=== PATIENT | male | born 1995 | race African-American/Black ===

== ENCOUNTER 2018-11-19 16:16 | Emergency (ER) | payer SELFPAY ==
[2018-11-19] MEDS ORDERED: Sodium Chloride 0.9% 1,000 ML IV ONE ×2 (16:21→17:09)
[2018-11-19] MEDS ORDERED: Ondansetron 4 MG Tab.DIS PO ONE (16:22)
--- NOTE | 2018-11-19 16:39 | EDM.PDOC ---
ED HPI GENERAL MEDICAL PROBLEM - General Chief Complaint: General Stated Complaint: POSSIBLE HEAT STROKE Time Seen by Provider: 11/19/18 16:20 Source of Information: Reports: Patient History Limitations: Reports: No Limitations - History of Present Illness INITIAL COMMENTS - FREE TEXT/NARRATIVE: patient presents with coworker from work for acute onset of dizziness, nausea, vomiting, and frontal sharp headache. 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 He denies SOB CP or abd pain, or near syncope symptoms. He denies any medication history, no meds no surgery, not smoker, ETOH (only 2 beers yesterday despite it was his birthday) he had to get up early to he states, and denies illicit drug use or any caffeine today. headache Pain Score (Numeric/FACES): 5 - Related Data Allergies Allergy/AdvReac Type Severity Reaction Status Date / Time No Known Allergies Allergy Verified 11/19/18 17:11 Home Meds: Home Meds . [No Known Home Meds] 11/19/18 [History] Past Medical History - Past Health History Medical/Surgical History: Denies Medical/Surgical History Social & Family History - Tobacco Use Smoking Status *Q: Never Smoker - Caffeine Use Caffeine Use: Reports: Coffee Other Caffeine Use: occiasional - Alcohol Use Alcohol Use History: Yes Days Per Week of Alcohol Use: 2 (occasional use) - Recreational Drug Use Recreational Drug Use: No ED ROS GENERAL - Review of Systems Review Of Systems: See Below Constitutional: Reports: Weakness, Fatigue, Diaphoresis HEENT: Reports: No Symptoms Respiratory: Reports: No Symptoms Cardiovascular: Reports: No Symptoms GI/Abdominal: Reports: No Symptoms : Reports: No Symptoms Musculoskeletal: Reports: No Symptoms Skin: Reports: Diaphoresis Neurological: Reports: No Symptoms Psychiatric: Reports: No Symptoms Hematologic/Lymphatic: Reports: No Symptoms ED EXAM, DIZZINESS - Physical Exam Exam: See Below Exam Limited By: No Limitations General Appearance: Alert, WD/WN, No Apparent Distress Nystagmus: worsens with head to L, worsens with head to R, reproducible, short duration (horizontal nystagmus, not vertical or rotatory. Always present with movement. ) Ears: Normal External Exam, Normal Canal, Hearing Grossly Normal, Normal TMs Nose: Normal Inspection, Normal Mucosa, No Blood Throat/Mouth: Normal Inspection, Normal Lips, Normal Teeth, Normal Gums, Normal Oropharynx, No Airway Compromise Head Exam: Atraumatic, Normocephalic Neck: Normal Inspection, Supple, Non-Tender, Full Range of Motion Respiratory/Chest: No Respiratory Distress, Lungs Clear, Normal Breath Sounds, No Accessory Muscle Use Cardiovascular: Normal Peripheral Pulses, Regular Rate, Rhythm, No Edema, No Gallop, No Murmur GI/Abdominal: Normal Bowel Sounds, Soft, Non-Tender (Male) Exam: Deferred Neurological: Alert, Normal Mood/Affect, Normal Dorsiflexion, CN II-XII Intact, Normal Plantar Flexion, Normal Gait, No Motor/Sensory Deficits, Oriented x 3, Other (rapid repetitive finger to nose and thumb to finger intact.) Back Exam: Normal Inspection, Full Range of Motion Extremities: Normal Inspection, Normal Range of Motion, Normal Capillary Refill Psychiatric: Normal Affect, Normal Mood Skin Exam: Warm, Intact, Normal Color Course - Vital Signs Text/Narrative:: saline lock, labs to check lytes and cbc, UA to check specific gravity, and urine tox. 1 liter of NS infusing, patient feels nausea, zofran ODT given, patient has peripheral related vertigo symptoms, worse always with movement, nothing at rest, meclizine ordered 25 mg PO. Patient is improved, laughing and having a nice conversation with his co worker , no N/V during ED stay, up to bathroom w.o assist, if patient turns his head side to side vertigo like symptoms of the room spinning and feeling Nausea rapidly occurs, but shortly resolves when he sits still. 2 liters of NS to be given. labs checked all normal and reassuring, normal Na 142 and K 3.8 levels. Trace ketones and darker urine color, early signs of volume depletion. a second liter was given. Ortho statics completed. Patient up and ambulated in the halls w/o assist, asymptomatic no vertigo like symptoms, gait steady, his coworker is here to take him home. Last Recorded V/S: Last Vital Signs Temp 96.7 F 11/19/18 16:20 Pulse 78 11/19/18 17:07 Resp 10 L 11/19/18 17:07 BP 136/70 11/19/18 17:07 Pulse Ox 98 11/19/18 17:07 Orthostatic Blood Pressure [ 118/74 Standing] Orthostatic Blood Pressure [ 123/64 Sitting] Orthostatic Blood Pressure [ 135/69 Supine] - Orders/Labs/Meds Labs: Laboratory Tests 11/19/18 11/19/18 11/19/18 Range/Units 16:40 16:40 16:45 WBC 9.40 (5.00-10.00) 10^3/uL RBC 5.04 (4.50-6.00) 10^6/uL Hgb 14.0 (13.0-17.0) g/dL Hct 39.3 L (40.0-52.0) % MCV 78.0 L (82.0-92.0) fL MCH 27.8 (27.0-31.0) pg MCHC 35.6 (32.0-36.0) g/dL RDW 14.2 (11.5-14.5) % Plt Count 230 (150-400) 10^3/uL MPV 10.2 (7.4-10.4) fL Sodium 142 (136-145) mmol/L Potassium 3.8 (3.3-5.3) mmol/L Chloride 104 (98-115) mmol/L Carbon Dioxide 23.9 (21.0-32.0) mmol/L Anion Gap 17.9 H (5-15) mmol/L BUN 16 (6-25) mg/dL Creatinine 0.98 (0.51-1.17) mg/dL Est Cr Clr Drug Dosing TNP Estimated GFR (MDRD) > 60 mL/min Glucose 103 H (75 - 99) mg/dL Calcium 9.4 (8.7-10.3) mg/dL Total Bilirubin 0.5 (0.2-1.0) mg/dL AST 31 (15-37) U/L ALT 31 (12-78) U/L Alkaline Phosphatase 75 (46-116) IU/L Total Protein 8.0 (6.4-8.2) g/dL Albumin 4.30 (3.00-4.80) g/dL Specimen Type Urinvoid Urine Color Yellow (YELLOW) Urine Appearance Slightly cloudy H (CLEAR) Urine pH 5.5 (5.0-9.0) Ur Specific [place] 1.025 (1.005-1.030) Urine Protein Negative (NEGATIVE) mg/dL Urine Glucose (UA) Negative (NEGATIVE) mg/dL Urine Ketones Trace H (NEGATIVE) mg/dL Urine Occult Blood Negative (NEGATIVE) Urine Nitrite Negative (NEGATIVE) Urine Bilirubin Negative (NEGATIVE) Urine Urobilinogen 0.2 (0.2-1.0) E.U./dL Ur Leukocyte Esterase Negative (NEGATIVE) Urine Opiates Screen (NEGATIVE) Ur Oxycodone Screen (NEGATIVE) Urine Methadone Screen (NEGATIVE) Ur Propoxyphene Screen (NEGATIVE) Ur Barbiturates Screen (NEGATIVE) Ur Tricyclics Screen (NEGATIVE) Ur Phencyclidine Scrn (NEGATIVE) Ur Amphetamine Screen (NEGATIVE) U Methamphetamines Scrn (NEGATIVE) U Benzodiazepines Scrn (NEGATIVE) U Cocaine Metab Screen (NEGATIVE) U Marijuana (THC) Screen (NEGATIVE) 11/19/18 Range/Units 16:45 WBC (5.00-10.00) 10^3/uL RBC (4.50-6.00) 10^6/uL Hgb (13.0-17.0) g/dL Hct (40.0-52.0) % MCV (82.0-92.0) fL MCH (27.0-31.0) pg MCHC (32.0-36.0) g/dL RDW (11.5-14.5) % Plt Count (150-400) 10^3/uL MPV (7.4-10.4) fL Sodium (136-145) mmol/L Potassium (3.3-5.3) mmol/L Chloride (98-115) mmol/L Carbon Dioxide (21.0-32.0) mmol/L Anion Gap (5-15) mmol/L BUN (6-25) mg/dL Creatinine (0.51-1.17) mg/dL Est Cr Clr Drug Dosing Estimated GFR (MDRD) mL/min Glucose (75 - 99) mg/dL Calcium (8.7-10.3) mg/dL Total Bilirubin (0.2-1.0) mg/dL AST (15-37) U/L ALT (12-78) U/L Alkaline Phosphatase (46-116) IU/L Total Protein (6.4-8.2) g/dL Albumin (3.00-4.80) g/dL Specimen Type Urine Color (YELLOW) Urine Appearance (CLEAR) Urine pH (5.0-9.0) Ur Specific [place] (1.005-1.030) Urine Protein (NEGATIVE) mg/dL Urine Glucose (UA) (NEGATIVE) mg/dL Urine Ketones (NEGATIVE) mg/dL Urine Occult Blood (NEGATIVE) Urine Nitrite (NEGATIVE) Urine Bilirubin (NEGATIVE) Urine Urobilinogen (0.2-1.0) E.U./dL Ur Leukocyte Esterase (NEGATIVE) Urine Opiates Screen Negative (NEGATIVE) Ur Oxycodone Screen Negative (NEGATIVE) Urine Methadone Screen Negative (NEGATIVE) Ur Propoxyphene Screen Negative (NEGATIVE) Ur Barbiturates Screen Negative (NEGATIVE) Ur Tricyclics Screen Negative (NEGATIVE) Ur Phencyclidine Scrn Negative (NEGATIVE) Ur Amphetamine Screen Negative (NEGATIVE) U Methamphetamines Scrn Negative (NEGATIVE) U Benzodiazepines Scrn Negative (NEGATIVE) U Cocaine Metab Screen Negative (NEGATIVE) U Marijuana (THC) Screen Negative (NEGATIVE) Meds: Medications Discontinued Medications Generic Name Dose Route Start Last Admin Trade Name Freq PRN Reason Stop Dose Admin Sodium Chloride 1,000 mls @ 999 mls/hr 11/19/18 16:21 11/19/18 17:04 Normal Saline IV 11/19/18 17:21 999 mls/hr .BOLUS ONE Administration Sodium Chloride 1,000 mls @ 1,000 mls/hr 11/19/18 17:09 11/19/18 17:18 Normal Saline IV 11/19/18 18:08 1,000 mls/hr .BOLUS ONE Administration Meclizine HCl 25 mg 11/19/18 17:09 11/19/18 17:13 Antivert PO 11/19/18 17:10 25 mg ONETIME ONE Administration Ondansetron HCl 4 mg 11/19/18 16:22 11/19/18 17:00 Zofran Odt PO 11/19/18 16:23 4 mg ONETIME ONE Administration Departure - Departure Time of Disposition: 17:42 Disposition: Home, Self-Care 01 Condition: Good Clinical Impression: Benign paroxysmal positional vertigo, Dehydration after exertion - Discharge Information *PRESCRIPTION DRUG MONITORING PROGRAM REVIEWED*: Not Applicable *COPY OF PRESCRIPTION DRUG MONITORING REPORT IN PATIENT VANITA: Not Applicable Instructions: Dehydration, Adult, [id number], Benign Positional Vertigo Referrals: PCP,Not In Area [Primary Care Provider] - Forms: ED Department Discharge Additional Instructions: f/u in the clinic in [place] next week if vertigo like symptoms do not improve, there is options to have Physical therapy work with you to improve and relieve these symptoms. Patient is to drink lots of water, avoid caffeine/alcohol and long periods underneath the sun light, meclizine OTC 25 mg by mouth as needed for dizziness symptoms, may cause slight drowsiness
[2018-11-19 17:06] LABS: ANION GAP 17.9 mmol/L (5-15); CHLORIDE,CL 104 mmol/L (98-115); SODIUM,NA 142 mmol/L (136-145)
[2018-11-19 17:06] LABS: BARBITURATE SCREEN,URINE NEGATIVE (NEGATIVE); BENZODIAZEPINES SCREEN,URINE NEGATIVE (NEGATIVE); TCA SCREEN,URINE NEGATIVE (NEGATIVE); THC SCREEN,URINE 50 NG/ML NEGATIVE (NEGATIVE)
[2018-11-19] MEDS ORDERED: Meclizine 25 MG Tab PO ONE (17:09)
== END 2018-11-19 18:38 | disposition home or self-care (01) ==
LOC: KA.ED 16:16
DX: E86.0 Dehydration (principal); H81.10 Benign paroxysmal vertigo, unspecified ear
CPT/HCPCS: 80053; 80305; 81003; 85027; 96360; 99284; A9270; J7030; 99283